=== PATIENT | female | born 1975 | race Caucasian/White ===

== ENCOUNTER 2016-09-09 07:06 | Outpatient (CLI) | payer OTHER ==
[2016-09-09 07:49] LABS: BILIRUBIN,URINE NEGATIVE (NEGATIVE); PH,URINE 7.5 PH (5.0-7.5)
[2016-09-09 07:51] LABS: BASOPHILS % (AUTO) 0.3 %; EOSINOPHILS # (AUTO) 0.1 10^3/uL (0.0-0.7); EOSINOPHILS % (AUTO) 1.4 %; HGB - HEMOGLOBIN 13.3 g/dL (12.0-16.0); LYMPHOCYTES # (AUTO) 1.8 10^3/uL (1.5-3.5); LYMPHOCYTES % (AUTO) 19.3 %; MEAN CORPUSCULAR HEMOGLOBIN 30.2 pg (27.0-31.0); MEAN CORPUSCULAR HGB CONC 34.2 g/dL (32.0-36.0); MEAN CORPUSCULAR VOLUME 88.3 fL (81.0-99.0); MONOCYTES # (AUTO) 0.5 10^3/uL (0.0-1.0); MONOCYTES % (AUTO) 5.5 %; NEUTROPHILS # (AUTO) 6.9 10^3/uL (1.5-6.6); NEUTROPHILS % (AUTO) 73.5 %; NUCLEATED RED BLOOD CELLS AUTO 0.1 /100WBC; RED BLOOD COUNT 4.41 10^6/uL (4.20-5.40); RED CELL DISTRIBUTION WIDTH 14.3 % (12.0-15.0); UNCORRECTED WHITE BLOOD COUNT 9.5 x10^3/uL; WHITE BLOOD COUNT 9.5 x10^3/uL (4.8-10.8)
== END 2016-09-09 07:07 | disposition home or self-care (01) ==
LOC: LAB 07:06
PROVIDERS: ATTEND Obstetrics & Gynecology
DX: Z36 Encounter for antenatal screening of mother (principal)
CPT/HCPCS: 36415; 81001; 82947; 85025; 86762; 86780; 86850; 86900; 86901; 87340; 87389

== ENCOUNTER 2016-09-18 10:00 | Outpatient (CLI) | payer OTHER | END 2016-09-18 10:01 | LOC: LAB.N 10:00 | PROVIDERS: ATTEND Obstetrics & Gynecology | DX: Z36 Encounter for antenatal screening of mother (principal) | CPT/HCPCS: 36415; 82950 ==

== ENCOUNTER 2016-10-24 07:30 | Outpatient (CLI) | payer OTHER ==
[2016-10-24 08:23] LABS: GTT GLUCOSE,FASTING 92 mg/dL (70-100)
== END 2016-10-24 07:31 | disposition home or self-care (01) ==
LOC: LAB 07:30
PROVIDERS: ATTEND Obstetrics & Gynecology
DX: Z36 Encounter for antenatal screening of mother (principal)
CPT/HCPCS: 36415; 82951

== ENCOUNTER 2016-11-01 12:30 | Outpatient (CLI) | payer OTHER ==
--- NOTE | 2016-11-01 16:06 | Ultrasound Report ---
OB ULTRASOUND: 11/01/2016 HISTORY: Anatomic survey. Real-time scanning by the supervisor tubing with saved static images reviewed. Last menstrual period 06/16/2016, EGA 19 weeks 5 days, BURKE 03/23/2017. No comparisons. There is a single intrauterine gestation in breech presentation with cardiac activity of 142 BPM. Placenta is anterior without evidence of previa. Amniotic fluid volume is subjectively normal. biometry today: Biparietal diameter 18 weeks 1 day, head circumference 20 weeks 0 days, abdominal circumference 21 weeks 0 days, femur length 21 weeks 1 day. Age by composite ultrasound measurements today 20 weeks 4 days, BURKE 03/17/2017. Estimated weight in the 97th percentile. A survey of anatomy is performed. There is a three-vessel cord with central cord origin from the placenta. The facial structures and intracranial structures, heart and outflow tracts, stomach, diaphragm, kidneys, bladder, cord insertion, spine and all four extremities are unremarkable. IMPRESSION: SINGLE INTRAUTERINE GESTATION, AGE BY COMPOSITE ULTRASOUND MEASUREMENTS TODAY 20 WEEKS 4 DAYS, BURKE 03/17/2017. NO ANOMALIES ARE IDENTIFIED. JOB #: [id number] EXT JOB #: [id number] MARY ELLEN
== END 2016-11-01 12:31 | disposition home or self-care (01) ==
LOC: DI 12:30
PROVIDERS: ATTEND Obstetrics & Gynecology
DX: Z36 Encounter for antenatal screening of mother (principal)
CPT/HCPCS: 76811

== ENCOUNTER 2017-02-27 08:00 | Outpatient (CLI) | payer OTHER, MEDICAID | END 2017-02-27 08:01 | LOC: LAB.R 08:00 | PROVIDERS: ATTEND Obstetrics & Gynecology | DX: Z36.89 Encounter for other specified antenatal screening (principal) | CPT/HCPCS: 87081 ==

== ENCOUNTER 2017-03-09 19:04 | Inpatient (IN) | payer OTHER, MEDICAID ==
[2017-03-09] MEDS ORDERED: SODIUM CHLORIDE FLUSH 0.9% 10 ML SYRINGE ONE (19:50)
[2017-03-09] MEDS ORDERED: LACTATED RINGERS 1,000 ML IV ONE ×2 (20:00→21:26)
[2017-03-09 20:31] LABS: BASOPHILS % (AUTO) 0.4 %; EOSINOPHILS # (AUTO) 0.2 10^3/uL (0.0-0.7); EOSINOPHILS % (AUTO) 1.5 %; HGB - HEMOGLOBIN 12.5 g/dL (12.0-16.0); LYMPHOCYTES # (AUTO) 1.7 10^3/uL (1.5-3.5); LYMPHOCYTES % (AUTO) 15.3 %; MEAN CORPUSCULAR HGB CONC 34.1 g/dL (32.0-36.0); MEAN PLATELET VOLUME 9.7 fL (7.9-10.8); MONOCYTES # (AUTO) 0.8 10^3/uL (0.0-1.0); MONOCYTES % (AUTO) 7.1 %; NEUTROPHILS # (AUTO) 8.5 10^3/uL (1.5-6.6); NEUTROPHILS % (AUTO) 75.7 %; PLT - PLATELET COUNT 183 10^3/uL (130-450); RED BLOOD COUNT 4.17 10^6/uL (4.20-5.40); RED CELL DISTRIBUTION WIDTH 14.9 % (12.0-15.0); WHITE BLOOD COUNT 11.3 x10^3/uL (4.8-10.8)
[2017-03-09] MEDS: SODIUM CHLORIDE FLUSH 0.9% 10 ML SYRINGE IVP PRN (20:38)
[2017-03-09] MEDS ORDERED: CITRIC ACID/SODIUM CITRATE 15 ML UDC PO SCH (20:47)
[2017-03-09] MEDS ORDERED: LACTATED RINGERS 1,000 ML IV SCH (21:00)
[2017-03-09] MEDS ORDERED: EPINEPHrine 1 MG/ML AMP IVP ONE (22:00)
[2017-03-09] MEDS ORDERED: OXYTOCIN 10 UNIT/ML VIAL IV ONE (22:00)
[2017-03-09] MEDS ORDERED: ONDANSETRON 4 MG/2 ML VIAL IVP ONE (22:00)
[2017-03-09] MEDS ORDERED: MORPHINE PF 5 MG/10 ML AMP EP ONE (22:00)
[2017-03-09] MEDS ORDERED: PHENYLEPHRINE 50 MG/5 ML VIAL IV ONE (22:00)
[2017-03-09] MEDS ORDERED: KETOROLAC 30 MG/ML VIAL IVP ONE (22:00)
[2017-03-09] MEDS ORDERED: ACETAMINOPHEN 1,000 MG/100 ML 100 ML IV ONE (22:00)
[2017-03-09] MEDS ORDERED: ePHEDrine 50 MG/ML AMP IVP ONE (22:00)
[2017-03-09] MEDS ORDERED: SODIUM CHLORIDE FLUSH 0.9% 10 ML SYRINGE IVP PRN (23:55)
[2017-03-09] MEDS ORDERED: diphenhydrAMINE INJ 50 MG/ML VIAL IVP PRN (23:55)
[2017-03-09] MEDS ORDERED: oxyCODONE 5 MG TABLET PO PRN (23:55)
[2017-03-09] MEDS ORDERED: OXYTOCIN/SODIUM CHLORIDE 250 ML IV ONE (23:55)
[2017-03-10] MEDS: ONDANSETRON 4 MG/2 ML VIAL IVP PRN ×2 (00:03→08:14)
--- NOTE | 2017-03-10 00:03 | OPERATIVE REPORT ---
Operative Report - General Admit Date: 03/09/17 Procedure Date: 03/09/17 Planned Procedure: repeat LTC/S with bilateral salpingectomy Pre-Op Diagnosis: 41 yo 38.1 week prior C/S with SROM wants Tubal Procedure Performed: repeat LTC/S with bilateral salpingectomy Post Op Diagnosis: Same - Procedure Note Primary Surgeon: Nabil Paz MD FACOG Secondary Surgeon: Lisa VALDERRAMAMW Anesthesia Provider: Shyam Rios Anesthesia Technique: Spinal ([id number]) IV Fluids (mL): 2,200 Estimated Blood Loss (mL): 500 Urine Output (mL): 350
[2017-03-10] MEDS ORDERED: METOCLOPRAMIDE 10 MG/2 ML VIAL ONE (01:07)
[2017-03-10] MEDS: ceFAZolin 2 GM/50 ML 2 GM/50 ML BAG IV SCH (01:08)
[2017-03-10] MEDS: SODIUM CHLORIDE FLUSH 0.9% 10 ML SYRINGE IVP SCH ×5 (01:08→17:46)
[2017-03-10] MEDS: KETOROLAC 30 MG/ML VIAL IV SCH ×4 (01:09→17:48)
[2017-03-10] MEDS: ACETAMINOPHEN 500 MG TABLET PO SCH ×4 (01:09→20:49)
[2017-03-10] MEDS ORDERED: diphenhydrAMINE 25 MG CAPSULE PO PRN (02:00)
[2017-03-10] MEDS ORDERED: MORPHINE 2 MG/ML CARPUJECT IVP PRN (02:00)
[2017-03-10] MEDS ORDERED: METOCLOPRAMIDE 10 MG/2 ML VIAL IVP PRN (02:00)
[2017-03-10] MEDS ORDERED: NALBUPHINE 20 MG/ML AMP IVP SCH (02:00)
[2017-03-10] MEDS ORDERED: ONDANSETRON 4 MG/2 ML VIAL IVP SCH (02:00)
[2017-03-10] MEDS ORDERED: diphenhydrAMINE INJ 50 MG/ML VIAL IVP PRN (02:00)
[2017-03-10] MEDS ORDERED: NALOXONE 0.4 MG/ML VIAL IVP PRN (02:00)
[2017-03-10] MEDS ORDERED: NALBUPHINE 20 MG/ML AMP IVP PRN (02:00)
[2017-03-10] MEDS: LACTATED RINGERS 1,000 ML IV SCH ×3 (02:16→16:48)
[2017-03-10 05:57] LABS: BASOPHILS # (AUTO) 0.1 10^3/uL (0.0-0.1); BASOPHILS % (AUTO) 0.4 %; HGB - HEMOGLOBIN 11.9 g/dL (12.0-16.0); LYMPHOCYTES % (AUTO) 5.8 %; MEAN CORPUSCULAR HEMOGLOBIN 30.2 pg (27.0-31.0); MEAN CORPUSCULAR HGB CONC 33.3 g/dL (32.0-36.0); MEAN CORPUSCULAR VOLUME 90.6 fL (81.0-99.0); MEAN PLATELET VOLUME 10.5 fL (7.9-10.8); MONOCYTES # (AUTO) 0.8 10^3/uL (0.0-1.0); MONOCYTES % (AUTO) 4.4 %; NEUTROPHILS # (AUTO) 15.5 10^3/uL (1.5-6.6); NEUTROPHILS % (AUTO) 89.4 %; PLT - PLATELET COUNT 169 10^3/uL (130-450); RED BLOOD COUNT 3.94 10^6/uL (4.20-5.40); WHITE BLOOD COUNT 17.3 x10^3/uL (4.8-10.8)
[2017-03-10] MEDS: SODIUM CHLORIDE FLUSH 0.9% 10 ML SYRINGE IVP PRN ×4 (07:20→12:03)
--- NOTE | 2017-03-10 08:13 | OPERATIVE REPORT ---
DATE OF SERVICE: 03/10/2017 Physician: Nabil Paz MD PREOPERATIVE DIAGNOSES 1. Primary section. 2. Spontaneous rupture of membranes. 3. Undesired fertility. POSTOPERATIVE DIAGNOSES 1. Primary section. 2. Spontaneous rupture of membranes. 3. Undesired fertility. PROCEDURES PERFORMED: Primary low transverse section with bilateral salpingectomy. SURGEON: Nabil Paz MD PLANT ENGINEERING SUPERVISOR: Lisa Senior, certified nurse long term care administrator ANESTHESIA PROVIDER: TASHA Gallagher ESTIMATED BLOOD LOSS: 500 mL INTRAVENOUS FLUIDS: 2200 URINE OUTPUT: 3500 FINDINGS: Upon entry into the abdominal cavity, the was noted to reside high in the pelvis, not at all well engaged in the pelvis. There were no nuchal cords. Amniotic fluid was clear. A live vigorous male with Apgars 9 and 9 was encountered. PROCEDURE: Following adequate spinal anesthesia, the patient was placed in the supine position with a roll under the right hip. At this point, the abdomen was taped up to remove the pannus out of the way. A Mendoza catheter was then placed under sterile conditions. She was then prepped and draped in the usual fashion. A timeout was performed, which the patient was identified as well as potential concerns. A Pfannenstiel incision was made roughly 2 fingerbreadths above the umbilicus. This was above the previous section as this was judged to be too low. This was carried down to the subcutaneous tissue to the fascia. The fascia was incised transversely and the incision was carried laterally using Olivas scissors. Then using both blunt and sharp dissection, the fascia was freed from the rectus abdominis. The rectus was noted to be reapproximated and then split high. Care was taken to avoid injury to bowel or bladder. This was carried down through the peritoneum and the peritoneum was entered bluntly. The rectus was split with Olivas scissors and then using a spread technique, the incision was opened. Bladder flap was then developed using both blunt and sharp dissection. Following this, a low transverse uterine incision was accomplished using a #10 blade, bandage scissors, as well as a finger-spread technique. The amniotic fluid was encountered and noted to be clear. The head of the was lifted out of the pelvis. The head was delivered, then the right arm, following the left arm and then the remainder of the infant was delivered without difficulty. Cord was doubly clamped and divided and handed to the nursery team that was standing by. Cord blood samples were obtained. At this point, the uterus was exteriorized. The placenta was then delivered. The uterus was wrapped with a moist lap and cleansed in the internal portion with a dry lap. Ring forceps were used to dilate the cervix. The lower portion of the incision was grasped with ring forceps. At this point, the incision was closed using a running locking suture of 0 Vicryl with an imbricating layer of 0 Vicryl. There was some bleeding noted on the right side. This was treated with 2 [id number] of 0 Vicryl with evidence of good hemostasis. No further bleeding was noted at this incision site at this time. At this point, the cul-de-sac was irrigated free of any clot. Estimated blood loss was determined to be roughly 500 mL. The right fallopian tube was grasped with [place]. Then using a LigaSure, the mesosalpinx was cauterized and transected all the way to the cornua. This was sent for pathology. The mesosalpinx was inspected and no bleeding was noted. The left tube was treated in an identical fashion. The tube was grasped with [place]. Then the LigaSure was used to cauterize and transect the mesosalpinx all the way to the fimbriated end. The mesosalpinx was inspected and no further bleeding was noted. The uterus was then delivered back into the abdominal cavity. At this point, the uterine incision was inspected. There was no evidence of any bleeding from this particular site. The peritoneum was closed with 2-0 Vicryl. The rectus was irrigated, no bleeding noted, so the fascia was closed using looped 0 PDS in a running suture. Subcutaneous tissue was closed using 2-0 Vicryl and the incision itself was closed using 4-0 Monocryl subcuticular with Mastisol and Steri-Strips being applied. At this point, a wound VAC was attempted to be placed; however, it was not possible to obtain a seal on the lower portion of the VAC. This was treated with Tegaderm and still no seal was obtained so the wound VAC was removed and this was treated with a pressure dressing with ABDs. At this point , the patient was taken back to the unit in stable condition. Sponge and needle counts were correct. TD: 03/10/2017 09:12 MARY ELLEN
[2017-03-10] MEDS ORDERED: SODIUM CHLORIDE 0.9% 500 ML IV ONE (09:24)
--- NOTE | 2017-03-10 09:31 | ANESTHESIA POST OP EVALUATION ---
Anesthesia Post Eval - Post Anesthesia Eval Nausea & Vomiting: positive: Negative (has nausea with headache.) Anesthesia Complications: positive: Other - Other Details/Therapies Other Details/Therapies: Asked to evaluate patient by RN as complaining of headache post spinal for C/S last evening. I spoke with on-call provider Dr. Landa and ordered fluid bolus. Will reevaluate this afternoon, I would like to manage conservatively today and offer blood patch tomorrow if symptoms persist. Emmy Sher BRICK PAVING CHECKER
[2017-03-10] MEDS ORDERED: LACTATED RINGERS 500 ML IV ONE (10:51)
--- NOTE | 2017-03-10 10:52 | PROVIDER PROGRESS NOTE ---
Subjective - General Admit Date: 03/09/17 Procedure Date: 03/09/17 Post Op Days: 1 Procedure Performed: repeat LTC/S - Review of Systems Wound/Incisions: positive: Dressing dry and intact General: positive: No symptoms (2/10, Having problems with Nausia. Urin out put low.) Genitourinary: positive: No symptoms Objective - Patient Data Reviewed Vital Signs: Yes Vital Signs: Vital Signs x48h Temp Pulse Resp BP Pulse Ox 03/10/17 07:41 36.7 C 76 16 116/66 99 03/10/17 04:31 36.7 C 67 16 115/73 96 03/10/17 03:00 36.6 C 72 18 125/69 97 Weight: Weight 03/08/17 03/09/17 03/10/17 23:59 23:59 23:59 Weight (kg) 92.136 kg Intake & Output: Intake and Output Totals x24h 03/08/17 03/09/17 03/10/17 23:59 23:59 23:59 Intake Total 1800 Output Total 50 525 Balance -50 1275 - Lab Results Lab Results: 03/10/17 05:40 Other Lab Results: Lab Results x24hrs 03/10/17 03/09/17 03/09/17 Range/Units 05:40 20:10 20:10 WBC 17.3 H 11.3 H (4.8-10.8) x10^3/uL RBC 3.94 L 4.17 L (4.20-5.40) 10^6/uL Hgb 11.9 L 12.5 (12.0-16.0) g/dL Hct 35.7 L 36.7 L (37.0-47.0) % MCV 90.6 88.0 (81.0-99.0) fL MCH 30.2 30.0 (27.0-31.0) pg MCHC 33.3 34.1 (32.0-36.0) g/dL RDW 15.0 14.9 (12.0-15.0) % Plt Count 169 183 (130-450) 10^3/uL MPV 10.5 9.7 (7.9-10.8) fL Neut # 15.5 H 8.5 H (1.5-6.6) 10^3/uL Lymph # 1.0 L 1.7 (1.5-3.5) 10^3/uL [place] # 0.8 0.8 (0.0-1.0) 10^3/uL Eos # 0.0 0.2 (0.0-0.7) 10^3/uL Baso # 0.1 0.0 (0.0-0.1) 10^3/uL Absolute Nucleated RBC 0.00 0.00 x10^3/uL Nucleated RBC % 0.0 0.0 /100WBC Blood Type O POSITIVE Antibody Screen NEGATIVE - Current Medications Current Medications: Current Medications Generic Name Dose Route Start Last Admin Trade Name Freq PRN Reason Stop Dose Admin Acetaminophen 1,000 mg 03/09/17 23:45 03/10/17 01:09 Tylenol PO Not Given Q8H ALYSSA Cefazolin Sodium/Dextrose 2 gm in 50 mls @ 100 mls/hr 03/09/17 19:57 01:08 Ancef 2 Gm/50 Ml IV 03/10/17 23:59 Not Given ONCE ALYSSA Lactated Ringer's 1,000 mls @ 100 mls/hr 03/09/17 23:45 03/10/17 02:16 Lr IV 100 mls/hr .Q10H ALYSSA Administration Ketorolac Tromethamine 30 mg 03/09/17 23:45 03/10/17 04:30 Toradol Inj IV 03/10/17 17:46 30 mg Q6H ALYSSA Administration Ondansetron HCl 4 mg 03/09/17 23:55 03/10/17 08:14 Zofran Inj IVP 4 mg Q4H PRN Administration Nausea / Vomiting Sodium Chloride 10 ml 03/09/17 19:57 03/10/17 09:34 Normal Saline Flush 0.9% IVP 10 ml PRN PRN Administration NEEDED PER PROVIDER ORDERS Sodium Chloride 10 ml 03/09/17 22:00 03/10/17 06:47 Normal Saline Flush 0.9% IVP Not Given Q8HR ALYSSA Sodium Chloride 10 ml 03/10/17 06:00 03/10/17 06:47 Normal Saline Flush 0.9% IVP Not Given Q8HR [facility] - Physical Exam Wound/Incisions: positive: Dressing dry and intact General Appearance: positive: No acute distress, Alert Respiratory: positive: Chest non-tender, No respiratory distress, Breath sounds nml Cardiovascular: positive: Regular rate & rhythm, No murmur, No gallop Abdomen: positive: Non-tender, Nml bowel sounds, No distention Back: positive: Other (bruse over the lower back). negative: CVA tenderness (R) , CVA tenderness (L) Extremities: negative: Calf tenderness, Juinor's sign/cords Neurologic/Psychiatric: positive: Oriented x3 Impression/Plan - Problem List Problem List: S/P repeat LT C/S wiht Salpingectomy. Nausia with low out put. bolis another 500 ml LR
[2017-03-10] MEDS: SIMETHICONE CHEW 80 MG TABLET PO SCH ×3 (11:54→20:50)
[2017-03-10] MEDS: DOCUSATE SODIUM 100 MG CAPSULE PO SCH ×2 (11:55→20:50)
--- NOTE | 2017-03-10 16:11 | PREOP HISTORY & PHYSICAL ---
DATE OF SERVICE: 03/09/2017 Physician: Nabil Paz MD IDENTIFICATION: The patient is a 41-year-old. She is 6, para 5. She is 38.1 weeks by early visits. CHIEF COMPLAINT: Spontaneous rupture of membranes (SROM). HISTORY OF PRESENT ILLNESS: Roughly at 1800 to 1830 this evening, patient states she had a gush of fluid from the vagina. She denies any bleeding, she denies any contractions at this time. She was scheduled for a section on the 18 of March. She had previous section performed for persistent occiput posterior and arrest of descent. PAST MEDICAL HISTORY: The patient denies any hypertensive, diabetic, cardiac or pulmonary disease. PAST SURGICAL HISTORY: Positive for section x1. ALLERGIES: NONE KNOWN. CURRENT MEDICATIONS: vitamins. HABITS: The patient denies use of alcohol, tobacco, or street or addictive drugs. SOCIAL HISTORY: Patient lives with her children and her spouse. She works as a homemaker. FAMILY HISTORY: Positive for father with esophageal CA. She denies any history of breast, ovarian, or endometrial CA. REVIEW OF SYSTEMS: Patient states she is in good health. She has had some difficulty with heartburn. PHYSICAL EXAMINATION GENERAL: Patient is a well-developed, well-nourished white female. She is in no acute distress at this time. VITAL SIGNS: Temperature is 37, heart rate is 109, blood pressure 129/79, respirations 16, 99% sat on room air. HEENT: Pupils are equal, round. Extraocular muscles are intact. Thyroid is not palpably enlarged. There is no evidence of any scleral icterus. HEART: Regular rate and rhythm without murmurs. LUNGS: Lung sen are clear without rales or wheezes. ABDOMEN: Soft, nontender. It is gravid. PELVIC: The patient was noted to have Nitrazine fluid coming from the vagina. EXTREMITIES: DTRs are +1. There is no evidence of any clonus. IMPRESSION 1. A 41-year-old G6, P1 female at 38.1 weeks. 2. Spontaneous rupture of membranes. 3. Previous section x1. 4. Undesired fertility. PLAN: We will perform repeat low transverse section. We will also perform tubal ligation. Risks and benefits have been explained to the patient including those , but not limited to bleeding, infection, injury to pelvic organs, which include the uterus, tubes, ovaries, bowel, bladder, and ureters. She is aware of the potential for DVT with PE as well as postop adhesions, which cause pain or bowel obstruction. The option of doing a salpingectomy versus a tubal ligation will be assessed at the time of the procedure. TD: 03/10/2017 09:03 MARY ELLEN
[2017-03-11] MEDS: LACTATED RINGERS 1,000 ML IV SCH (01:52)
[2017-03-11] MEDS: ACETAMINOPHEN 500 MG TABLET PO SCH ×3 (05:03→21:35)
[2017-03-11] MEDS: ceFAZolin 2 GM/50 ML 2 GM/50 ML BAG IV SCH (07:49)
--- NOTE | 2017-03-11 08:27 | PROVIDER PROGRESS NOTE ---
Subjective - General Admit Date: 03/09/17 Procedure Date: 03/09/17 Post Op Days: 2 Procedure Performed: repeat LTC/S - Review of Systems Wound/Incisions: negative: No drainage (scant blood), Erythema General: positive: No symptoms (pain 4/10. Narcotics cause nausia. change to Mortin) HEENT: positive: Headaches (Head ach resolving) Gastrointestinal: positive: Flatus Genitourinary: positive: No symptoms Objective - Patient Data Reviewed Vital Signs: Yes Weight: Weight 03/09/17 03/10/17 03/11/17 23:59 23:59 23:59 Weight (kg) 92.136 kg Intake & Output: Intake and Output Totals x24h 03/09/17 03/10/17 03/11/17 23:59 23:59 23:59 Intake Total 3661.667 1521.667 Output Total 50 2175 1460 Balance -50 1486.667 61.667 - Lab Results Lab Results: 03/10/17 05:40 - Current Medications Current Medications: Current Medications Generic Name Dose Route Start Last Admin Trade Name Freq PRN Reason Stop Dose Admin Acetaminophen 1,000 mg 03/09/17 23:45 03/11/17 05:03 Tylenol PO 1,000 mg Q8H ALYSSA Administration Diphenhydramine HCl 25 mg 03/09/17 23:55 03/10/17 13:09 Benadryl Inj IVP 25 mg Q6H PRN Administration ITCHING Docusate Sodium 100 mg 03/10/17 09:00 03/10/17 20:50 Colace 100mg Capsule PO 100 mg BID ALYSSA Administration Ondansetron HCl 4 mg 03/09/17 23:55 03/10/17 08:14 Zofran Inj IVP 4 mg Q4H PRN Administration Nausea / Vomiting Simethicone 80 mg 03/10/17 06:00 03/10/17 20:50 Mylicon PO 80 mg TID ALYSSA Administration Sodium Chloride 10 ml 03/09/17 19:57 03/10/17 12:03 Normal Saline Flush 0.9% IVP 10 ml PRN PRN Administration NEEDED PER PROVIDER ORDERS Sodium Chloride 10 ml 03/09/17 22:00 03/10/17 17:46 Normal Saline Flush 0.9% IVP 10 ml Q8HR ALYSSA Administration Sodium Chloride 10 ml 03/10/17 06:00 03/10/17 06:47 Normal Saline Flush 0.9% IVP Not Given Q8HR ALYSSA - Physical Exam Wound/Incisions: positive: Healing well, Drainage (scant drainage) General Appearance: positive: No acute distress, Alert Respiratory: positive: Chest non-tender, No respiratory distress, Breath sounds nml Cardiovascular: positive: Regular rate & rhythm, No murmur Abdomen: positive: Non-tender, Nml bowel sounds, No distention Back: negative: CVA tenderness (R), CVA tenderness (L) Skin: positive: Color nml, No rash Extremities: negative: Calf tenderness, Junior's sign/cords Neurologic/Psychiatric: positive: Oriented x3 Impression/Plan - Problem List Problem List: POD # 2 progressing. PEÑA resolving. not able to tolerate Narcotics change to Motrin.
[2017-03-11] MEDS: IBUPROFEN 800 MG TABLET PO PRN ×2 (09:04→21:34)
[2017-03-11] MEDS: DOCUSATE SODIUM 100 MG CAPSULE PO SCH ×2 (09:06→21:34)
[2017-03-11] MEDS: SIMETHICONE CHEW 80 MG TABLET PO SCH ×3 (09:06→17:54)
[2017-03-11] MEDS: SODIUM CHLORIDE FLUSH 0.9% 10 ML SYRINGE IVP SCH ×2 (12:24)
[2017-03-12] MEDS: ACETAMINOPHEN 500 MG TABLET PO SCH (05:29)
[2017-03-12] MEDS: SODIUM CHLORIDE FLUSH 0.9% 10 ML SYRINGE IVP SCH ×6 (07:24→07:26)
[2017-03-12] MEDS: IBUPROFEN 800 MG TABLET PO PRN (08:26)
[2017-03-12] MEDS: SIMETHICONE CHEW 80 MG TABLET PO SCH (08:26)
[2017-03-12] MEDS: DOCUSATE SODIUM 100 MG CAPSULE PO SCH (08:26)
--- NOTE | 2017-03-12 10:38 | PROVIDER PROGRESS NOTE ---
Subjective - General Admit Date: 03/09/17 Procedure Date: 03/09/17 Post Op Days: 3 Procedure Performed: repeat LTC/S - Review of Systems Wound/Incisions: positive: Healing well, Drainage (scant drainage) General: positive: No symptoms (Pain 4/10. Narcotics cause nausia. change to Mortin. pt notes adiquit pain control wiht out Narcotics.) HEENT: negative: Headaches Gastrointestinal: positive: Flatus Genitourinary: positive: No symptoms Objective - Patient Data Vital Signs: Vital Signs x48h Temp Pulse Resp BP Pulse Ox 03/12/17 08:39 37.0 C 91 18 133/76 H 98 03/12/17 05:41 36.5 C 85 16 127/71 Intake & Output: Intake and Output Totals x24h 03/10/17 03/11/17 03/12/17 23:59 23:59 23:59 Intake Total 3661.667 2881.667 Output Total 2175 2160 Balance 1486.667 721.667 - Lab Results Lab Results: 03/10/17 05:40 - Current Medications Current Medications: Current Medications Generic Name Dose Route Start Last Admin Trade Name Freq PRN Reason Stop Dose Admin Acetaminophen 1,000 mg 03/09/17 23:45 03/12/17 05:29 Tylenol PO 1,000 mg Q8H ALSYSA Administration Diphenhydramine HCl 25 mg 03/09/17 23:55 03/10/17 13:09 Benadryl Inj IVP 25 mg Q6H PRN Administration ITCHING Docusate Sodium 100 mg 03/10/17 09:00 03/12/17 08:26 Colace 100mg Capsule PO 100 mg BID ALYSSA Administration Ibuprofen 800 mg 03/11/17 08:22 03/12/17 08:26 Motrin PO 800 mg BID PRN Administration PAIN Ondansetron HCl 4 mg 03/09/17 23:55 03/10/17 08:14 Zofran Inj IVP 4 mg Q4H PRN Administration Nausea / Vomiting Simethicone 80 mg 03/10/17 06:00 03/12/17 08:26 Mylicon PO 80 mg TID ALYSSA Administration Sodium Chloride 10 ml 03/09/17 19:57 03/10/17 12:03 Normal Saline Flush 0.9% IVP 10 ml PRN PRN Administration NEEDED PER PROVIDER ORDERS Sodium Chloride 10 ml 03/09/17 22:00 03/12/17 07:26 Normal Saline Flush 0.9% IVP Not Given Q8HR ALYSSA Sodium Chloride 10 ml 03/10/17 06:00 03/12/17 07:26 Normal Saline Flush 0.9% IVP Not Given Q8HR ALYSSA - Physical Exam Wound/Incisions: positive: Healing well. negative: Erythema General Appearance: positive: No acute distress, Alert Respiratory: positive: Chest non-tender, No respiratory distress, Breath sounds nml Cardiovascular: positive: Regular rate & rhythm, No murmur Abdomen: positive: Non-tender, Nml bowel sounds Extremities: negative: Calf tenderness, Junior's sign/cords Neurologic/Psychiatric: positive: Oriented x3 Impression/Plan - Problem List Problem List: POD # 3 doing well. Desires to go home. Discharge meds Oxycodone. Motrein Tylenol Colace. RTC one week Reviewed S/S of infection and mastitis
--- NOTE | 2017-03-12 10:48 | Discharge Plan ---
Discharge Plan Disposition: 01 Home, Self Care Condition: Good Diet: Regular Activity Restrictions: No Restrictions Shower Restrictions: No (keep wound clean and dry) Driving Restrictions: Yes (No driving while on narcotics) Weight Bearing: Full Weight No Smoking: If you smoke, Please STOP! Call for help. Follow-up with: Nabil Paz MD [Provider Admit Priv/Credential] -
--- NOTE | 2017-03-12 11:01 | DISCHARGE SUMMARY ---
Physician: Nabil Paz MD DATE OF ADMISSION: 03/09/2017 DATE OF DISCHARGE: ADMITTING DIAGNOSES 1. A 41-year-old G6, P5 female who was 38 weeks 1 day with spontaneous rupture of membranes. 2. Undesired fertility. DISCHARGE DIAGNOSES 1. A 41-year-old G6, P5 female who was 38 weeks 1 day with spontaneous rupture of membranes. 2. Undesired fertility. PROCEDURES 1. Repeat low transverse section. 2. Bilateral tubal ligation with salpingectomy. PRESENTING HISTORY: The patient is a 41-year-old G6, P5 female who had early visits to the clinic. She was noted to be 38.1 weeks. On the evening of 03/09/2017, she spontaneously ruptured her membranes. She denies any contractions. She was previously scheduled for a on 03/18/2017. Her physical examination on admission was unremarkable with the exception of clear amniotic fluid coming from the vagina. The head was noted to reside very high in the pelvis at time of pelvic examination. Laboratories preop showed her white count was 11.3, her hemoglobin was 12.5, hematocrit was 36.7, and platelets are 183. Postoperatively, white count was 17.3, hemoglobin 11.9, hematocrit was 35.7, and platelets were 169. HOSPITAL COURSE: The patient was admitted at which time she was felt to be ruptured. For this reason, she was taken back for repeat low transverse section as well as tubal ligation with salpingectomy. This was eventful only that she had difficulty with placement of her spinal. Her surgery proceeded well. She did well postoperatively with the exception of some headaches, which have totally resolved even while being up and about. Her diet was advanced. She had difficulty with nausea with narcotics, thus was changed only to nonsteroidal anti-inflammatory drugs, which gave her adequate pain control. She is going home today with instructions to follow up in the clinic in roughly 1 week. DISCHARGE MEDICATIONS 1. Oxycodone 5 mg, #10. 2. She will be taking her own home supply of Motrin 800 mg. 3. She is also being sent home on Colace 100 mg p.o. b.i.d. to decrease the risk of developing constipation. The patient will be given instructions regarding infection of the uterus as well as breasts. She appears to understand. TD: 03/12/2017 12:00 MARY ELLEN
[2017-03-12 11:15] VITALS: BP 134/73
== END 2017-03-12 11:41 | disposition home or self-care (01) | DRG 766 ==
LOC: WFO 19:04 → FBP 19:09 → WFO 19:32 → FBP 19:33
PROVIDERS: ADMIT Obstetrics & Gynecology; ATTEND Obstetrics & Gynecology
PROC: 10D00Z1 Extraction of Products of Conception, Low, Open Approach (ICD-10-PCS; principal; 2017-03-10)
PROC: 0UT70ZZ Resection of Bilateral Fallopian Tubes, Open Approach (ICD-10-PCS; 2017-03-10)
DX: O34.219 Maternal care for unspecified type scar from previous cesarean delivery (principal); N85.8 Other specified noninflammatory disorders of uterus; O90.89 Other complications of the puerperium, not elsewhere classified; R51 Headache; R11.2 Nausea with vomiting, unspecified; T40.605A Adverse effect of unspecified narcotics, initial encounter; Z30.2 Encounter for sterilization; Y92.230 Patient room in hospital as the place of occurrence of the external cause; Z3A.38 38 weeks gestation of pregnancy; Z37.0 Single live birth
CPT/HCPCS: 36415; 85025; 86850; 86900; 86901; 88302; 99212